=== PATIENT | female | born 1950 | race Caucasian/White ===

== ENCOUNTER → 2016-08-17 | Outpatient (REF) | payer MEDICARE ==
[2016-08-20 00:07] LABS: Lyme Disease IgG/IgM Antibodie <0.91 ISR (0.00-0.90); Lyme Disease IgM Ab Quantitati <0.80 index (0.00-0.79)
== END ==
LOC: M LABDRAW1 15:22
PROVIDERS: ATTEND Orthopaedic Surgery
DX: M16.12 Unilateral primary osteoarthritis, left hip (principal)

== ENCOUNTER → 2016-09-13 | Outpatient (CLI) | payer MEDICARE ==
[~2016-09-13] MED LIST: ASPI32ECTA PO; CENT1TAB PO; CYCL10TA PO; DRAM25TA3 PO; FLUO20CA8 PO; FURO20TA2 PO; HYDR10TAB PO; ISOS30TAB PO; LOSA100T36 PO; METO-209 PO; OMEP40CA2 PO; VITAMIN B 12 PO
[2016-09-13 12:19] LABS: INR 0.87
[2016-09-13 12:35] LABS: MEAN CORPUSCULAR HEMOGLOBIN 32.1 pg (27.0-33.0); MEAN CORPUSCULAR VOLUME 94.2 fl (80.0-96.0); RED CELL DISTRIBUTION WIDTH 12.2 % (11.5-14.5); WHITE BLOOD COUNT 7.8 K/mm3 (4.0-10.0)
[2016-09-13 12:39] LABS: ALBUMIN 4.1 GM/DL (3.2-5.2); ALBUMIN/GLOBULIN RATIO 1.37 (1.00-1.93); ALKALINE PHOSPHATASE 73 U/L (45-117); ALT/SGPT 29 U/L (12-78); ANION GAP 8 MEQ/L (8-16); AST/SGOT 16 U/L (15-37); BILIRUBIN,TOTAL 0.7 MG/DL (0.2-1.0); BLOOD UREA NITROGEN 18 MG/DL (7-18); CALCIUM LEVEL 9.1 MG/DL (8.8-10.2); CARBON DIOXIDE LEVEL 27 MEQ/L (21-32); CHLORIDE LEVEL 105 MEQ/L (98-107); CREATININE FOR GFR 0.74 MG/DL (0.55-1.02); GLOMERULAR FILTRATION RATE > 60.0 (>45); GLUCOSE, FASTING 100 MG/DL (80-110); SODIUM LEVEL 140 MEQ/L (136-145); TOTAL PROTEIN 7.1 GM/DL (6.4-8.2)
--- NOTE | 2016-09-13 12:42 | REP ---
Clinical: Preoperative assessment. Diverticulitis . Comparison: 04/15/2008 . Technique: PA and lateral. Findings: The mediastinum and cardiac silhouette are normal. The lung montague are clear and without acute consolidation, effusion, or pneumothorax. The skeletal structures are intact and normal. Impression: 1. No acute cardiopulmonary process. Signed by Aj Bailey MD 09/13/2016 12:33 P
--- NOTE | 2016-09-13 22:26 | ECGEPIP ---
Stationary ECG Study [facility] Test Date: 2016-09-13 Pat Name: JJ PATEL Department: Room: - Gender: F Pediatric Psychiatrist: SKYE : 1950 Requested By: Ulysses Salazar Order Number: [id number] Reading MD: Francisco Vick Measurements Intervals [place] Rate: 55 P: -27 AK: 199 QRS: 20 QRSD: 98 T: 53 QT: 440 QTc: 422 Interpretive Statements SINUS BRADYCARDIA, Otherwise within normal limits. No prior ECG available for comparison at the time of interpretation. Electronically Signed On 09-13-2016 22:25:52 EST by Francisco Vick
== END ==
LOC: M ADMPAT 10:30
PROVIDERS: ATTEND Orthopaedic Surgery
DX: Z01.818 Encounter for other preprocedural examination (principal); R00.1 Bradycardia, unspecified; I10 Essential (primary) hypertension; M16.12 Unilateral primary osteoarthritis, left hip; R10.30 Lower abdominal pain, unspecified; K57.92 Diverticulitis of intestine, part unspecified, without perforation or abscess without bleeding

== ENCOUNTER 2016-09-27 05:51 | Inpatient (IN) | payer MEDICARE ==
[2016-09-13 11:46] VITALS: BP 144/86
--- NOTE | 2016-09-20 10:49 | HPE ---
DATE OF ADMISSION: 09/27/2016 ATTENDING PHYSICIAN: Dr. Kline CHIEF COMPLAINT: Left hip pain and stiffness. HISTORY: Josefina is a pleasant, 66-year-old female with progressively worsening left hip pain and stiffness. She has failed to improve with conservative management. She has elected for surgery for her continued symptoms with weight bearing activities and activities of daily living. She has consented for a left total hip arthroplasty by Dr. Kline. Medical optimization pending with Dr. Gonzalez and is not present for review today. CURRENT MEDICATIONS: - omeprazole 40 mg daily - metoprolol 100 mg daily - isosorbide 50 mg daily - hydralazine 10 mg four times daily - aspirin 325 mg daily - vitamin B12 daily - meclizine 12.5 mg as needed - Flexeril 10 mg as needed - furosemide 20 mg twice daily - losartan 100 mg daily - fish oil - daily multivitamin ALLERGIES: - GIA INHIBITORS PAST MEDICAL HISTORY: 1. Hypertension. 2. Gastroesophageal reflux. PAST SURGICAL HISTORY: Back surgery. SOCIAL HISTORY: Patient denies tobacco use. She occasionally consumes alcohol. She is , living with . REVIEW OF SYSTEMS: The patient denies fevers, chills, nausea, vomiting or diarrhea. She denies chest pain, shortness of breath, or cough. She denies any recent upper respiratory infection or urinary tract infection symptoms. She does have persistent left knee pain with weight bearing activities. PHYSICAL EXAMINATION: Well nourished, well developed female in no apparent distress. She is walking with a slight limping gait favoring her left side. Inspection of the left hip revealed no gross abnormalities. Skin is intact. She does have essentially normal motion of the hip with 5/5 strength of the left lower extremity. Her calf is soft, nontender to palpation. Neck supple without lymphadenopathy or jugular venous distention (JVD). Lungs clear to auscultation bilaterally without rales or wheezes. Heart regular rate and rhythm. Abdomen: Bowel sounds are present. Vital Signs: Height 5 feet 4 inches. Weight 224 pounds. Temperature 98 degrees. Blood pressure 126/70. Heart rate 72. Respiratory rate 20. LABORATORY DATA: Chest x-ray with no acute cardiopulmonary process. Electrocardiogram (EKG) sinus bradycardia. Urinalysis and urine culture negative. Nasal and sinus culture shows normal trudy. Comprehensive metabolic panel: Fasting glucose 100, BUN 18, creatinine 0.74, GFR greater than 60, sodium 140, potassium 4.0, chloride 105, carbon dioxide 27, anion gap 8, calcium 9.1, AST 16, ALT 29, alkaline phosphatase 73, total bilirubin 0.7, total protein 7.1, albumin 4.1, albumin globulin ratio 1.37. Complete blood count: WBC 7.8, RBC 4.17, hemoglobin 13.4, hematocrit 39.3, and platelets 237. Erythrocyte sedimentation rate 11. Prothrombin time decreased at 11.9. INR 0.87. DIAGNOSIS: Symptomatic osteoarthritis of the left hip with x-rays notable for end stage degenerative changes. PLAN: Patient has consented for a left total hip arthroplasty by Dr. Kline pending medical optimization from primary care.
[2016-09-27] VITALS (7 sets, daily range): BP systolic 122–133; BP diastolic 59–78
[~2016-09-27] VITALS: Ht 167.6 cm; Wt 102.1 kg
[2016-09-27] MEDS ORDERED: CelecoXIB 400 MG CAP PO ONE (06:00)
[2016-09-27] MEDS ORDERED: PREGABALIN 75 MG CAP(LYRICA) PO ONE (06:00)
[2016-09-27] MEDS ORDERED: PERCOCET 5MG/325MG TAB PO ONE (06:00)
[2016-09-27] MEDS ORDERED: LR 1,000 ML IV SCH ×3 (06:00→12:15)
[2016-09-27] MEDS ORDERED: CelecoXIB (CeleBREX) 100 MG CAP PO ONE (06:00)
[2016-09-27] MEDS ORDERED: MIDAZOLAM INJ 2 MG/2 ML VIAL (J2250) As Ordered ONE (07:07)
[2016-09-27] MEDS ORDERED: fentaNYL 100 MCG/2 ML INJECTION (J3010) As Ordered ONE ×3 (07:08→10:25)
[2016-09-27] MEDS ORDERED: LIDOCAINE 2% INJ 100 MG/5 ML SDV (FOR ANES.) As Ordered ONE (07:09)
[2016-09-27] MEDS ORDERED: PROPOFOL 200 MG/20 ML VIAL As Ordered ONE (07:09)
[2016-09-27] MEDS ORDERED: ROCURONIUM BROMIDE 50 MG/5 ML VIAL As Ordered ONE (07:12)
[2016-09-27] MEDS ORDERED: BUPIVACAINE/EPIN 0.25% 30 ML VIAL As Ordered ONE (07:15)
[2016-09-27] MEDS ORDERED: TRANEXAMIC ACID 100 MG/ML 10ML VIAL As Ordered ONE (07:16)
[2016-09-27] MEDS ORDERED: BUPIVACAINE HCL 0.25% 30 ML VIAL As Ordered ONE (07:16)
[2016-09-27] MEDS ORDERED: EPINEPHrine INJ 1 MG/ML 1ML VIAL/AMP As Ordered ONE (07:17)
[2016-09-27] MEDS ORDERED: ceFAZolin 1GM INJ (J0690) As Ordered ONE (07:17)
[2016-09-27] MEDS ORDERED: ePHEDrine SULFATE 25 MG/5 ML(5MG/ML) SYRINGE As Ordered ONE (08:35)
[2016-09-27] MEDS ORDERED: ONDANSETRON 4MG/2ML VIAL (J2405) As Ordered ONE (08:36)
[2016-09-27] MEDS: PREGABALIN 50 MG CAP (LYRICA) PO SCH ×2 (09:00→21:19)
[2016-09-27] MEDS: FUROSEMIDE 20 MG TAB PO SCH ×2 (09:00→17:21)
[2016-09-27] MEDS ORDERED: METOPROLOL SUCC (TopROL XL) 100MG *XL* TAB PO SCH (09:00)
[2016-09-27] MEDS ORDERED: LOSARTAN 50 MG TAB PO SCH (09:00)
[2016-09-27 10:17] LABS: MEAN CORPUSCULAR HEMOGLOBIN 32.3 pg (27.0-33.0); MEAN CORPUSCULAR VOLUME 95.1 fl (80.0-96.0); WHITE BLOOD COUNT 6.9 K/mm3 (4.0-10.0)
[2016-09-27] MEDS ORDERED: PROMETHAZINE INJ 25 MG/ML VIAL (J2550) IV PRN (11:15)
[2016-09-27] MEDS ORDERED: ACETAMINOPHEN TAB 650MG DOSE (2X325MG) PO PRN ×2 (11:15)
[2016-09-27] MEDS ORDERED: FLEET ENEMA PR PRN (11:15)
[2016-09-27] MEDS ORDERED: MECLIZINE 12.5 MG TAB PO PRN (11:15)
[2016-09-27] MEDS ORDERED: PERCOCET 5MG/325MG TAB PO PRN ×2 (11:30→12:15)
[2016-09-27] MEDS ORDERED: HYDROmorphone HCL 1 MG/ML SYRINGE (J1170) IV PRN ×2 (12:15)
[2016-09-27] MEDS ORDERED: MORPHINE 2 MG/ML 1ML SYRINGE IV PRN (12:15)
[2016-09-27] MEDS ORDERED: fentaNYL 100 MCG/2 ML INJECTION (J3010) IV PRN (12:15)
[2016-09-27] MEDS ORDERED: METOCLOPRAMIDE INJ 10MG/2ML VIAL (J2765) IV PRN (12:15)
[2016-09-27] MEDS ORDERED: ONDANSETRON 4MG/2ML VIAL (J2405) IV PRN (12:15)
[2016-09-27] MEDS ORDERED: PATIENT IS CURRENTLY ON AN ON-Q PAIN BUSTER PAIN RELIEF SYSTEM XX SCH (12:15)
[2016-09-27] MEDS: **hydrALAZINE** 10 MG TAB PO SCH ×3 (13:35→21:20)
[2016-09-27] MEDS: PERCOCET 5MG/325MG TAB PO PRN ×3 (13:36→21:18)
[2016-09-27] MEDS ORDERED: WARFARIN SOD 2.5 MG TAB PO ONE (17:00)
[2016-09-27] MEDS ORDERED: WARFARIN SOD 1 MG TAB PO ONE (17:00)
[2016-09-27] MEDS: OMEPRAZOLE 20 MG CAP PO SCH (17:21)
[2016-09-27] MEDS: ASCORBIC ACID 500 MG TAB PO SCH ×2 (17:23→21:19)
--- NOTE | 2016-09-27 20:19 | IPN ---
DATE: 09/27/2016 SUBJECTIVE: The patient tells me she is feeling well. She tells me pain is under control. She denies chest pain, shortness of breath, fevers, chills, nausea, vomiting, or diarrhea. OBJECTIVE: VITAL SIGNS: Temperature 95.8, pulse 81, respiratory rate 18, blood pressure (BP) 130/60, oxygen saturation 95% on room air. GENERAL: She is a very pleasant female, obese, lying in bed at a 30-degree angle. She appears in no distress, watching television. HEENT: She is wearing glasses. She has moist mucous membranes. No elevation in central venous pressure (CVP). CARDIOVASCULAR: S1, S2, regular. RESPIRATORY: Clear. ABDOMEN: Obese. EXTREMITIES: No clubbing, cyanosis, or edema. Her left hip dressing is clean, dry, and intact. LABORATORY STUDIES: WBC 6.9, hemoglobin 12.0 hematocrit 35, platelet count 219. ASSESSMENT AND PLAN: This is a 66-year-old female postoperative day 0 for left hip replacement. 1. Postoperative day 0 for left hip replacement. Management as per orthopedic surgery and Dr. Page's team. 2. Depression. Continue with fluoxetine. 3. Gastroesophageal reflux disease (GERD). Continue with omeprazole. 4. Resistant hypertension. Continue with metoprolol 100 mg, isosorbide 30 at bedtime, hydralazine 10 mg twice a day, Lasix 20 mg twice a day, and losartan 100 mg daily. Holding parameters on these medications while she is receiving pain medication. Her home aspirin is on hold. 5. Chronic vertigo. Continue with meclizine. 6. Deep vein thrombosis (DVT) prophylaxis. As per orthopedic surgery, restart aspirin 325 mg. Her home medication was okay with orthopedic surgery. We will continue to follow along with this interesting patient with you. Please call with any specific questions.
[2016-09-27] MEDS: METOPROLOL SUCC (TopROL XL) 100MG *XL* TAB PO SCH (21:18)
[2016-09-27] MEDS: ISOSORBIDE MON. (IMDUR) 30 MG XR TAB PO SCH (21:19)
[2016-09-28 02:00] VITALS: BP 103/53
[2016-09-28] MEDS: PERCOCET 5MG/325MG TAB PO PRN ×5 (02:03→21:26)
[2016-09-28 06:00] VITALS: BP 103/51
[2016-09-28 07:02] LABS: MEAN CORPUSCULAR HEMOGLOBIN 32.3 pg (27.0-33.0); MEAN CORPUSCULAR HGB CONC 32.9 g/dl (32.0-36.5); RED CELL DISTRIBUTION WIDTH 12.2 % (11.5-14.5); WHITE BLOOD COUNT 8.2 K/mm3 (4.0-10.0)
[2016-09-28 07:20] LABS: INR 1.06
[2016-09-28] MEDS: FUROSEMIDE 20 MG TAB PO SCH (09:00)
[2016-09-28] MEDS: **hydrALAZINE** 10 MG TAB PO SCH ×2 (09:00→21:26)
[2016-09-28] MEDS: OMEPRAZOLE 20 MG CAP PO SCH (09:18)
[2016-09-28] MEDS: ASCORBIC ACID 500 MG TAB PO SCH ×2 (09:18→21:27)
[2016-09-28] MEDS: FLUoxetine 20 MG CAP PO SCH (09:18)
[2016-09-28] MEDS: PREGABALIN 50 MG CAP (LYRICA) PO SCH ×2 (09:18→21:26)
[2016-09-28 09:24] LABS: CALCIUM LEVEL 7.6 MG/DL (8.8-10.2); CREATININE FOR GFR 1.29 MG/DL (0.55-1.02); GLOMERULAR FILTRATION RATE 43.8 (>45); MAGNESIUM LEVEL 1.6 MG/DL (1.8-2.4); POTASSIUM SERUM 4.4 MEQ/L (3.5-5.1)
--- NOTE | 2016-09-28 10:01 | RO ---
DATE OF PROCEDURE: 09/27/2016 PREOPERATIVE DIAGNOSIS: Left hip osteoarthritis. POSTOPERATIVE DIAGNOSIS: Left hip osteoarthritis. Pain. PROCEDURE PERFORMED: Left total hip replacement. SURGEON: Dr. Ulysses Kline WEBFOCUS DEVELOPER: Mr. Julito PA-C ANESTHESIA: Spinal. ESTIMATED BLOOD LOSS: About 1000 mL, replaced with crystalloid. COMPLICATIONS: None. PainBuster utilized. COMPONENTS: Used for this case include the following: DePuy Accord system, 54 mm acetabular cup, +8.5 mm neck length, 36 mm femoral head, size 6 stem, normal offset, apex hole eliminator. INDICATIONS: Progressive discomfort in the left hip with MRI evidence of significant hip arthritis and joint effusion. Patient had positive response to intra-articular injection of corticosteroid for a number of weeks. The patient has elected for operative intervention. Consent reviewed in detail including a aaliyah discussion of the pathology involved, procedure proposed, alternatives including doing nothing, and risks including but not limited to pain, failure, infection, bleeding, blood loss, incomplete relief symptoms, need for additional surgery, and other problems. We also talked about the risk of dislocation. OPERATIVE COURSE: Identified in the holding area. Site and side verified. Brought to the operating room. Once spinal was administered, she was positioned on the [place] frame for exposure of the left hip for arthroplasty in the lateral decubitus position. Next, once I and the adjustment supervisor were comfortable with the patient's positioning, she was sterilely prepped and draped in the usual fashion. Next, Mr. Vila stood on the patient's anterior and I on the posterior. We utilized environmental suits for the procedure. The line of the incision was based on palpable landmarks to the greater trochanter. It was outlined with a marking pen and infiltrated with 0.25% Marcaine with epinephrine. The length of the incision was approximately 25 cm long as this patient is of significant body habitus. Next, it was made with a 10 blade and developed down through skin and subcuticular tissues. Dissection was accomplished now using the Bovie cautery down to the lateral fascia. Next, once the lateral fascia was exposed, it was split with a Bovie and then a Hyatt scissor exposing the greater trochanter, bursa and the abductor mechanism. Split was created at the 2 o' clock position in the abductor mechanism and the dissection continued along the femoral neck to the femoral head. Bovie was utilized to open the hip capsule exposing the femoral neck and head. The abductor mechanism was reflected anteriorly leaving a cuff of tissue for later repair and the vastus lateralis was also split. Dissection continued along the femoral neck splitting the hip capsule to allow palpation of the lesser trochanter. Next, a bone hook was utilized to dislocate the hip while Mr. Vila applied traction and rotated the hip out. Next, trochanteric positioner was applied. The hip was positioned in the sterile bag and the extremity was positioned in the sterile bag by Sami Julito. Next, the femoral canal was opened with the canal opening reamer, followed by the canal finder, followed by the lateralizing reamer. Next, we then reamed up through a size 6, the predicted size templating. Next, template was installed and the neck cut was made approximately 3/4 fingerbreadths from the lesser trochanter. The femoral head was removed. Next, at this stage, anterior and posterior retractors were installed and we inspected the acetabulum. There was a large acetabular labrum. This was removed anteriorly using the hot knife as well as posteriorly using the hot knife. Condyloid fossa was cleared of soft tissue. The acetabular ligament was split. Next, at this point, acetabular reamers were utilized from a size 45 up through a size 53 reamer. In the floor of the condyloid fossa, did appreciate a small defect extending to periosteum approximately 1 cm at the medial aspect; however, there was adequate rim of bone. Next, we trialed with a 53-54 mm trial, which appeared to be stable and well seated and did not require any stabilization. Next, once this was accomplished, we irrigated. I again inspected the acetabulum. There was bleeding bone and good acetabular rim. The non trial 54 mm acetabular liner was selected using the targeting device. We installed the acetabular shell, impacted with a mallet, verified that the acetabulum was seated, placed the apex hole eliminator, placed the 36 mm ALTRX acetabular liner, which was tamped into place and verified to be secure. Next, femoral side was then positioned. Rasps were utilized through a size 6, which seemed to fit appropriately. Calcar planer size small was utilized. We then trialed and +8.5 mm seemed to be appropriate with a standard offset. The hip was placed the range of motion with this trial. It was stable in internal rotation and flexion and stable in extension and had good soft tissue tension. Next, these trial components were then removed. Irrigation was accomplished. Non trial femoral stem was installed, followed by the non trial 36 mm hip ball. The femoral head was tamped into place with the nylon impactor and the hip was reduced. Next, capsular tissues were closed, followed by reapproximation of the abductor mechanism to the greater trochanter using bony tunnels, as well as [id number] more proximally, and reapproximation of vastus lateralis distally. Prior to this closure, we did place the tranexamic acid (TXA) solution, which was allowed to stand for 1 minute. Next, the lateral fascia was then reapproximated with interrupted as well as a Stratafix #1 suture. Next, PainBuster was placed exiting superiorly and primed. Next, some deep soft tissue was reapproximated at Mark's fascia with interrupted stitch, the deep dermis with interrupted stitch, and a Prineo dressing was applied over the wound. No active bleeding was noted at the conclusion of the case. Once the dressing was in place and allowed to dry, the patient was moved to the hospital bed and moved to the recovery room in good condition. For further details, please refer to the medical record. YOLI
[2016-09-28] MEDS ORDERED: MAG SULF 1GM/100ML (MAG RUN) 1 GM in APPROPRIATE DILUENT 1 EA IV ONE (11:45)
[2016-09-28] MEDS ORDERED: NS 0.45% 1,000 ML IV SCH (11:45)
[2016-09-28 13:10] LABS: MEAN CORPUSCULAR HEMOGLOBIN 32.6 pg (27.0-33.0); MEAN CORPUSCULAR HGB CONC 33.7 g/dl (32.0-36.5); MEAN CORPUSCULAR VOLUME 96.9 fl (80.0-96.0); RED CELL DISTRIBUTION WIDTH 12.2 % (11.5-14.5); WHITE BLOOD COUNT 9.2 K/mm3 (4.0-10.0)
--- NOTE | 2016-09-28 13:12 | REP ---
LEFT HIP: Three views of the left hip are performed. There is a total hip prosthesis which appears to be in good position. The osseous structures are intact and well aligned. Signed by Olivier Howell MD 09/29/2016 04:36 P
--- NOTE | 2016-09-28 13:15 | IPNPDOC ---
Text Note Date of Service The patient was seen on 09/28/16. NOTE Subjective: Patient states she feels well. Had an episode of nonbilious nonbloody vomiting after receiving her pain medications today. Objective: Vitals: (see below) General: No acute distress, laying comfortably in bed. HEENT: Moist mucous membranes. Neck: No JVD or lymphadenopathy Cardiac: RRR, No murmurs Pulm: Clear to auscultation b/l. No wheezing, rhonchi Abd: NT/ND + BS Ext: No edema or cyanosis. Left hip with minimal swelling. No bleeding. Distal pulses intact. Labs (see below) Images: Assessment/Plan 1. Postop day 1 status post left total hip arthroplasty, management per orthopedics 2. Hypertension- patient is borderline hypotensive today. Lasix and losartan have been discontinued. Continue metoprolol and isosorbide mononitrate, hydralazine. 3. Acute kidney injury- likely prerenal. We'll start gentle IV fluid hydration. Hold Lasix and losartan. 4. Anemia- patient does have a drop in hemoglobin from 12-8.5. Patient did have some bleeding in the OR. We'll trend CBC, and transfuse as needed. 5. Depression- continue SSRI 6. GERD- continue PPI 7. History of vertigo- on meclizine as needed DVT prophy: Per orthopedics VS,Aaron, I+O VS, Aaron, I+O Laboratory Tests 09/28/16 06:32 Calcium Level 7.6 L 09/28/16 06:34 Red Blood Count 2.63 L, Mean Corpuscular Volume 98.0 H, Mean Corpuscular Hemoglobin 32.3, Mean Corpuscular Hemoglobin Concent 32.9, Red Cell Distribution Width 12.2 Vital Signs Date Time Temp Pulse Resp B/P Pulse Ox O2 Delivery O2 Flow Rate FiO2 09/28/16 11:29 18 09/28/16 09:00 103/51 09/28/16 06:00 98.2 81 92 Room Air 09/27/16 21:20 2.0 I&O- Last 24 Hours up to 6 AM 09/28/16 06:00 Intake Total 4270 ml Output Total 1625 ml Balance 2645 ml ORACIO MONTGOMERY MD Sep 28, 2016 13:15
[2016-09-28 14:00] VITALS: BP 102/51
[2016-09-28] MEDS ORDERED: WARFARIN SOD 5 MG TAB PO ONE (17:00)
[2016-09-28 19:12] LABS: MEAN CORPUSCULAR HEMOGLOBIN 32.5 pg (27.0-33.0); MEAN CORPUSCULAR HGB CONC 33.1 g/dl (32.0-36.5); MEAN CORPUSCULAR VOLUME 98.2 fl (80.0-96.0); RED CELL DISTRIBUTION WIDTH 12.2 % (11.5-14.5); WHITE BLOOD COUNT 10.3 K/mm3 (4.0-10.0)
[2016-09-28] MEDS: METOPROLOL SUCC (TopROL XL) 100MG *XL* TAB PO SCH (21:26)
[2016-09-28] MEDS: ISOSORBIDE MON. (IMDUR) 30 MG XR TAB PO SCH (21:27)
[2016-09-28 22:00] VITALS: BP 137/62
[2016-09-29] MEDS: PERCOCET 5MG/325MG TAB PO PRN ×4 (03:23→20:31)
[2016-09-29 06:00] VITALS: BP 161/89
[2016-09-29 07:22] LABS: MEAN CORPUSCULAR HEMOGLOBIN 32.3 pg (27.0-33.0); WHITE BLOOD COUNT 8.4 K/mm3 (4.0-10.0)
[2016-09-29 07:24] LABS: INR 1.27
[2016-09-29 07:28] LABS: ANION GAP 8 MEQ/L (8-16); BLOOD UREA NITROGEN 20 MG/DL (7-18); CALCIUM LEVEL 7.9 MG/DL (8.8-10.2); CARBON DIOXIDE LEVEL 26 MEQ/L (21-32); CHLORIDE LEVEL 101 MEQ/L (98-107); CREATININE FOR GFR 0.89 MG/DL (0.55-1.02); GLOMERULAR FILTRATION RATE > 60.0 (>45); GLUCOSE, FASTING 129 MG/DL (80-110); SODIUM LEVEL 135 MEQ/L (136-145)
[2016-09-29] MEDS: OMEPRAZOLE 20 MG CAP PO SCH (08:43)
[2016-09-29] MEDS: ASCORBIC ACID 500 MG TAB PO SCH ×2 (08:44→20:31)
[2016-09-29] MEDS: FLUoxetine 20 MG CAP PO SCH (08:44)
[2016-09-29] MEDS: PREGABALIN 50 MG CAP (LYRICA) PO SCH ×2 (08:45→20:31)
[2016-09-29] MEDS: **hydrALAZINE** 10 MG TAB PO SCH ×2 (08:45→20:28)
[2016-09-29] MEDS: LOSARTAN 50 MG TAB PO SCH (08:45)
--- NOTE | 2016-09-29 13:10 | IPNPDOC ---
Text Note Date of Service The patient was seen on 09/29/16. NOTE Subjective: Patient states she feels well. Received 1U PRBC. No active bleeding at hip site. Objective: Vitals: (see below) General: No acute distress, laying comfortably in bed. HEENT: Moist mucous membranes. Neck: No JVD or lymphadenopathy Cardiac: RRR, No murmurs Pulm: Clear to auscultation b/l. No wheezing, rhonchi Abd: NT/ND + BS Ext: No edema or cyanosis. Left hip with minimal swelling. No bleeding. Distal pulses intact. Labs (see below) Images: Assessment/Plan 1. Postop day 1 status post left total hip arthroplasty, management per orthopedics 2. Hypertension-Elevated today. Losartan restarted at half the dose. Restart lasix as well. Continue metoprolol and isosorbide mononitrate, hydralazine. 3. Acute kidney injury- resolved. likely prerenal. s/p gentle IV fluid hydration. restart Lasix and losartan. 4. Anemia- patient does have a drop in hemoglobin from 12-7.9. Received 1 U PRBC 09/29. estimated blood loss 1000cc in the OR. We'll trend CBC, and transfuse as needed. 5. Depression- continue SSRI 6. GERD- continue PPI 7. History of vertigo- on meclizine as needed DVT prophy: Per orthopedics VS,Aaron, I+O VS, Aaron, I+O Laboratory Tests 09/28/16 19:01 Red Blood Count 2.60 L, Mean Corpuscular Volume 98.2 H, Mean Corpuscular Hemoglobin 32.5, Mean Corpuscular Hemoglobin Concent 33.1, Red Cell Distribution Width 12.2 09/29/16 06:47 Red Blood Count 2.44 L, Mean Corpuscular Volume 95.0, Mean Corpuscular Hemoglobin 32.3, Mean Corpuscular Hemoglobin Concent 34.0, Red Cell Distribution Width 12.0, Calcium Level 7.9 L Vital Signs Date Time Temp Pulse Resp B/P Pulse Ox O2 Delivery O2 Flow Rate FiO2 09/29/16 09:14 14 09/29/16 08:45 161/89 09/29/16 08:00 Room Air 09/29/16 06:00 97.0 81 95 09/27/16 21:20 2.0 I&O- Last 24 Hours up to 6 AM 09/29/16 06:00 Intake Total 3860 ml Output Total 2500 ml Balance 1360 ml ORACIO MONTGOMERY MD Sep 29, 2016 13:10
[2016-09-29 14:00] VITALS: BP 110/56
[2016-09-29 15:09] LABS: MEAN CORPUSCULAR HEMOGLOBIN 32.8 pg (27.0-33.0); MEAN CORPUSCULAR VOLUME 93.8 fl (80.0-96.0); RED CELL DISTRIBUTION WIDTH 12.7 % (11.5-14.5); WHITE BLOOD COUNT 8.8 K/mm3 (4.0-10.0)
[2016-09-29] MEDS: FUROSEMIDE 20 MG TAB PO SCH (16:31)
[2016-09-29] MEDS ORDERED: WARFARIN SOD 3 MG TAB PO ONE (17:00)
[2016-09-29] MEDS: ISOSORBIDE MON. (IMDUR) 30 MG XR TAB PO SCH (20:29)
[2016-09-29] MEDS: METOPROLOL SUCC (TopROL XL) 100MG *XL* TAB PO SCH (20:30)
[2016-09-29 22:00] VITALS: BP 121/56
[2016-09-30] MEDS: PERCOCET 5MG/325MG TAB PO PRN ×2 (03:29→10:03)
[2016-09-30 06:00] VITALS: BP 151/70
[2016-09-30 07:00] LABS: MEAN CORPUSCULAR HEMOGLOBIN 32.5 pg (27.0-33.0); MEAN CORPUSCULAR HGB CONC 34.5 g/dl (32.0-36.5); MEAN CORPUSCULAR VOLUME 94.2 fl (80.0-96.0); WHITE BLOOD COUNT 8.6 K/mm3 (4.0-10.0)
[2016-09-30 07:19] LABS: ANION GAP 9 MEQ/L (8-16); BLOOD UREA NITROGEN 16 MG/DL (7-18); CALCIUM LEVEL 8.4 MG/DL (8.8-10.2); CARBON DIOXIDE LEVEL 26 MEQ/L (21-32); CHLORIDE LEVEL 105 MEQ/L (98-107); CREATININE FOR GFR 0.73 MG/DL (0.55-1.02); GLOMERULAR FILTRATION RATE > 60.0 (>45); GLUCOSE, FASTING 142 MG/DL (80-110); SODIUM LEVEL 140 MEQ/L (136-145)
[2016-09-30 07:24] LABS: INR 1.34
[2016-09-30] MEDS ORDERED: PERC5TAB6 PO (08:03)
[2016-09-30] MEDS ORDERED: COUM2.5T11 PO (08:03)
[2016-09-30 08:10] VITALS: BP 135/63
[2016-09-30] MEDS: FUROSEMIDE 20 MG TAB PO SCH (09:00)
[2016-09-30] MEDS: OMEPRAZOLE 20 MG CAP PO SCH (09:34)
[2016-09-30] MEDS: PREGABALIN 50 MG CAP (LYRICA) PO SCH (09:34)
[2016-09-30 09:35] VITALS: BP 135/63
[2016-09-30] MEDS: FLUoxetine 20 MG CAP PO SCH (09:35)
[2016-09-30] MEDS: LOSARTAN 50 MG TAB PO SCH (09:35)
[2016-09-30] MEDS: ASCORBIC ACID 500 MG TAB PO SCH (09:35)
[2016-09-30] MEDS: **hydrALAZINE** 10 MG TAB PO SCH (09:35)
[2016-09-30] MEDS ORDERED: COZA50TA PO (10:34)
[2016-09-30] MEDS ORDERED: FURO20TA2 PO (10:34)
--- NOTE | 2016-09-30 14:55 | IPNPDOC ---
Text Note Date of Service The patient was seen on 09/30/16. NOTE Subjective: Patient states she feels well. No active bleeding at hip site. Objective: Vitals: (see below) General: No acute distress, laying comfortably in bed. HEENT: Moist mucous membranes. Neck: No JVD or lymphadenopathy Cardiac: RRR, No murmurs Pulm: Clear to auscultation b/l. No wheezing, rhonchi Abd: NT/ND + BS Ext: No edema or cyanosis. Left hip with minimal swelling. No bleeding. Distal pulses intact. Labs (see below) Images: Assessment/Plan 1. Postop day 2 status post left total hip arthroplasty, management per orthopedics 2. Hypertension-Cont losartan 50mg, lasix,. Continue metoprolol and isosorbide mononitrate, hydralazine. 3. Acute kidney injury- resolved. likely prerenal. s/p gentle IV fluid hydration. restart Lasix and losartan. 4. Anemia- stable patient does have a drop in hemoglobin from 12-7.9. Received 1 U PRBC 09/29. estimated blood loss 1000cc in the OR. 5. Depression- continue SSRI 6. GERD- continue PPI 7. History of vertigo- on meclizine as needed DVT prophy: Per orthopedics Pt cleared by PT and is being d/c today. VS,Aaron, I+O VS, Aaron, I+O Laboratory Tests 09/29/16 15:00 Red Blood Count 2.68 L, Mean Corpuscular Volume 93.8, Mean Corpuscular Hemoglobin 32.8, Mean Corpuscular Hemoglobin Concent 35.0, Red Cell Distribution Width 12.7 09/30/16 06:41 Red Blood Count 2.72 L, Mean Corpuscular Volume 94.2, Mean Corpuscular Hemoglobin 32.5, Mean Corpuscular Hemoglobin Concent 34.5, Red Cell Distribution Width 13.0, Calcium Level 8.4 L Vital Signs Date Time Temp Pulse Resp B/P Pulse Ox O2 Delivery O2 Flow Rate FiO2 09/30/16 10:03 18 Room Air 09/30/16 09:35 135/63 09/30/16 08:10 97.2 79 95 09/27/16 21:20 2.0 I&O- Last 24 Hours up to 6 AM 09/30/16 06:00 Intake Total 2150 ml Output Total 1800 ml Balance 350 ml ORACIO MONTGOMERY MD Sep 30, 2016 14:55
== END 2016-09-30 11:29 | disposition home health service (06) | DRG 470 ==
LOC: M OR 05:51 → M MS5PR 12:05
PROVIDERS: ADMIT Orthopaedic Surgery; ATTEND Orthopaedic Surgery
PROC: 0SRB02A Replacement of Left Hip Joint with Metal on Polyethylene Synthetic Substitute, Uncemented, Open Approach (ICD-10-PCS; principal; 2016-09-27 07:30)
PROC: 30233N1 Transfusion of Nonautologous Red Blood Cells into Peripheral Vein, Percutaneous Approach (ICD-10-PCS; 2016-09-29)
DX: M16.12 Unilateral primary osteoarthritis, left hip (principal); N17.9 Acute kidney failure, unspecified; I10 Essential (primary) hypertension; D64.9 Anemia, unspecified; R42 Dizziness and giddiness; F32.9 Major depressive disorder, single episode, unspecified; K21.9 Gastro-esophageal reflux disease without esophagitis; Z79.899 Other long term (current) drug therapy; Z88.8 Allergy status to other drugs, medicaments and biological substances

== ENCOUNTER → 2017-12-26 | Outpatient (CLI) | payer MEDICARE | LOC: M WUC 16:32 | DX: R10.84 Generalized abdominal pain (principal); Z96.642 Presence of left artificial hip joint; Z98.890 Other specified postprocedural states | CPT/HCPCS: 74018 ==

== ENCOUNTER → 2019-05-29 | Outpatient (CLI) | payer MEDICARE ==
[~2019-05-29] MED LIST changes: +ASPI-255 PO; -ASPI32ECTA PO; +COUM2.5T17 PO; +COZA50TA PO; -LOSA100T36 PO; +LOSA100T50 PO; -METO-209 PO; +METO1TAB33 PO; -OMEP40CA2 PO; +OMEP40CA97 PO; +PERC5TAB12 PO
--- NOTE | 2019-05-29 15:42 | REP ---
Three-phase bone scan of the hips and pelvis. History: Attention left hip. Rule out prosthetic loosening of left hip joint. Comparison radiographs September 28, 2016. Technique: 22.0 mCi of technetium 99m MDP is injected and standard three-phase imaging was acquired. Scintigraphic findings: The anterior and the posterior flow images are normal. Blood pool planar images demonstrate the expected photopenia from the prosthetic components of the left hip arthroplasty but no evidence of regional hyperemia. Delayed scan images show degenerative disc uptake and scoliosis in the lumbar spine. There is no focus of increased uptake associated with a left hip arthroplasty components to suggest loosening. Impression: No evidence to suggest loosening. Left hip arthroplasty. Degenerative disc disease in the mid lumbar spine. Electronically Signed by Jerzy Otero MD 05/29/2019 04:55 P
== END ==
LOC: M RAD 07:54
PROVIDERS: ATTEND Orthopaedic Surgery
DX: Z96.642 Presence of left artificial hip joint (principal); M51.36 Other intervertebral disc degeneration, lumbar region
CPT/HCPCS: 78315; A9503

== ENCOUNTER → 2025-04-21 | Outpatient (REF) ==
[~2025-04-21] MED LIST changes: -COZA50TA PO; +CYCL-707 PO; -CYCL10TA PO; +FLUO-96 PO; -FLUO20CA8 PO; +HYDR-161 PO; -HYDR10TAB PO; +ISOS-18 PO; -ISOS30TAB PO; +LOSA-528 PO; +LOSA100T46 PO; -LOSA100T50 PO; +OMEP40CA4 PO; -OMEP40CA97 PO
== END ==
LOC: M CFLAB 12:55
DX: Z01.89 Encounter for other specified special examinations (principal)